=== PATIENT | female | born 1960 | race Caucasian/White ===

== ENCOUNTER 2017-04-05 23:17 | Emergency (ER) | payer BC, OTHER ==
[2017-04-06 00:01] VITALS: BP 148/89
[2017-04-06] MEDS ORDERED: Ketorolac 60 MG/2 ML SDV IM ONE (00:13)
--- NOTE | 2017-04-06 00:18 | EDM.PDOC ---
ED HPI GENERAL MEDICAL PROBLEM - General Chief Complaint: Lower Extremity Injury/Pain Stated Complaint: TWISTED LEFT ANKLE Time Seen by Provider: 04/06/17 00:00 Source of Information: Reports: Patient History Limitations: Reports: No Limitations - History of Present Illness INITIAL COMMENTS - FREE TEXT/NARRATIVE: 56 yo female tripped on some stairs about 6 hrs ago and injured her L ankle. Is not now able to bear weight. Here for eval. No self tx. Onset Date: 04/05/17 Onset Time: 18:00 Duration: Hour(s):, Getting Worse Location: Reports: Lower Extremity, Left Quality: Reports: Ache, Sharp (with weight bearing) Severity: Moderate Improves with: Reports: Rest Worsens with: Reports: Movement Context: Reports: Trauma (fall) Associated Symptoms: Reports: No Other Symptoms Treatments ALIGNMENT SPECIALIST: Reports: Other (see below) (none) - Related Data Allergies Allergy/AdvReac Type Severity Reaction Status Date / Time Sulfa (Sulfonamide Allergy Body Aches Verified 04/06/17 00:00 Antibiotics) Past Medical History [employer]ENDANT History: Reports: Other OB/BYN History: HYSTERECTOMY - Past Surgical History Other HEENT Surgeries/Procedures: SINUS SURGERY Other Musculoskeletal Surgeries/Procedures:: BILAT KNEE REPLACEMENT Social & Family History - Tobacco Use Smoking Status *Q: Unknown Ever Smoked Review of Systems - Review of Systems Review Of Systems: See Below Constitutional: Reports: No Symptoms Musculoskeletal: Reports: Joint Pain (L ankle pain tonight.) Skin: Reports: Bruising (bruises easily.) Neurological: Reports: No Symptoms ED EXAM, GENERAL - Physical Exam Exam: See Below Exam Limited By: No Limitations General Appearance: Alert, WD/WN, No Apparent Distress Extremities: Joint Swelling (L ankle swollen. Tender both medially and laterally. More swelling laterally than medially. ), Other (No lateral foot or proximal fibula pain. Skin intact. Negative anterior drawer sign. ) Neurological: Alert, Oriented, CN II-XII Intact, Normal Cognition, No Motor/ Sensory Deficits Psychiatric: Normal Affect, Normal Mood Skin Exam: Warm, Dry, Intact, Normal Color, No Rash Course - Vital Signs Last Recorded V/S: Last Vital Signs Temp 36.6 C 04/05/17 23:57 Pulse 67 04/05/17 23:57 Resp 15 04/05/17 23:57 BP 148/89 H 04/05/17 23:57 Pulse Ox 97 04/05/17 23:57 - Orders/Labs/Meds Orders: Active Orders 24 hr Category Date Time Status Ankle Min 3V Lt [CR] Stat Exams 04/06/17 00:13 Taken Meds: Medications Discontinued Medications Generic Name Dose Route Start Last Admin Trade Name Konrad PRN Reason Stop Dose Admin Ketorolac Tromethamine 60 mg 04/06/17 00:13 04/06/17 00:20 Toradol IM 04/06/17 00:14 60 mg ONETIME ONE Administration - Radiology Interpretation Free Text/Narrative:: Ankle X-ray-soft tissue swelling only Departure - Departure Time of Disposition: 00:50 Disposition: Home, Self-Care 01 Condition: Good Clinical Impression: Ankle sprain Qualifiers: Encounter type: initial encounter Involved ligament of ankle: calcaneofibular ligament Laterality: left Qualified Code(s): S93.412A - Sprain of calcaneofibular ligament of left ankle, initial encounter - Discharge Information Referrals: PCP,None [Primary Care Provider] - Forms: ED Department Discharge - My Orders Last 24 Hours: My Active Orders 04/06/17 00:13 Ankle Min 3V Lt [CR] Stat - Assessment/Plan Last 24 Hours: My Active Orders 04/06/17 00:13 Ankle Min 3V Lt [CR] Stat
--- NOTE | 2017-04-06 09:14 | CR ---
Ankle Min 3V Lt HISTORY: fall on stairs FINDINGS: No acute fracture or dislocation is identified. Bony architecture and ankle mortise are preserved. T here is mild soft tissue swelling. IMPRESSION: Soft tissue swelling left ankle. No acute fracture or dislocation is identified.
== END 2017-04-06 01:05 | disposition home or self-care (01) ==
LOC: JP.ED 23:17
DX: S93.412A Sprain of calcaneofibular ligament of left ankle, initial encounter (principal); Z96.653 Presence of artificial knee joint, bilateral; Z90.710 Acquired absence of both cervix and uterus; Z98.890 Other specified postprocedural states; Z88.2 Allergy status to sulfonamides; W18.40XA Slipping, tripping and stumbling without falling, unspecified, initial encounter
CPT/HCPCS: 73610; 96372; 99284; J1885